=== PATIENT | female | born 1980 ===

== ENCOUNTER 2017-01-29 14:26 | Emergency (ER) | payer MEDICAID ==
[~2017-01-29] VITALS: Ht 160 cm; Wt 75.5 kg
[~2017-01-29 14:26] MED LIST: ALBU8.5H4 IH; CLIN-78 PO; Oxycodone/Acetaminophen PO; SENN-60 PO
[2017-01-29 14:32] VITALS: BP 117/76; PULSE 81; RESP 26; O2SAT 98
[2017-01-29] MEDS ORDERED: Albuterol-Ipratropium 3 mL Inhalation Solution NEB ONE (14:35)
--- NOTE | 2017-01-29 14:35 | ED.REPORT ---
HPI-Dyspnea / Wheezing Date of Service Jan 29, 2017 ED Provider: History of Present Illness: 36-year-old female here with breathing difficulties. History of asthma. Has been having shortness of breath. Wheezing and asthma-like symptoms for 1-2 weeks. Ran out of her albuterol yesterday. Is being open up at night. She has had a cold recently, but no fevers. Never been intubated Nursing Notes Stated Complaint: DIFFICULTY BREATHING Chief Complaint: Respiratory Complaints Nursing Notes Reviewed: Yes Allergies: Coded Allergies: codeine (Verified Allergy, Unknown, 03/26/15) Scheduled Albuterol HFA (Proair HFA) 8.5 Gm Hfa.aer.ad 2 PUFFS INHALATION Q4H Azithromycin (Zithromax) 250 Mg Tablet 250 MG PO DAILY Beclomethasone Dipropionate (Qvar) 8.7 Gm Aer.w.adap 1 PUFF INHALATION BID 2 puff bid, start after prednisone Clindamycin (Clindamycin) 300 Mg Capsule 300 MG PO QID Prednisone (PredniSONE) 20 Mg Tablet 20 MG PO BID Scheduled PRN ([Oxycodone/Acetaminophen]) 1 TAB TABLET 1 TAB PO Q4H PRN PRN For Pain Albuterol HFA (Albuterol HFA) 8.5 Gm Hfa.aer.ad 2 PUFF IH Q4 PRN PRN For Shortness of Breath Sennosides (Senokot) 8.6 Mg Tablet 17.2 MG PO BID PRN PRN For Constipation General Time Seen by MD: 14:34 Chief Complaint Shortness of breath, Wheezing Hx Obtained From: Patient Arrived By: Walk-in Sudden in Onset?: No Context of Onset: Asthma attack Symptom Duration: Since onset Location: : None Recent Healthcare: No recent doctor visit Similar Sx Previous: Yes Past Medical History Past Medical History asthma Chronic back pain Reports: Asthma Past Surgical History Reports: Tonsillectomy Family History non-contributory Smoking History Current Every Day Smoker Social History Alcohol Use: "Social" Drug Use: Cocaine, THC Ambulatory Status Independent Review of Systems Basic Review of Systems GI: No abdominal pain, No anorexia, No nausea, No vomiting Constitutional: Denies: Chills, Fatigue, Fever Respiratory: Reports: Dyspnea on exertion, Prod cough, clear, Shortness of breath, Wheezing Cardiovascular: Reports: Dyspnea on exertion, Denies: Chest pain Complete sys rev & neg: except as marked. Physical Exam Initial Vital Signs Vital Signs (First) Date Time Temp Pulse Resp B/P Pulse Ox O2 Delivery O2 Flow Rate FiO2 01/29/17 14:32 81 26 117/76 98 Room Air Initial VS: Reviewed, Vital signs normal Head / Eyes: Atraumatic, Normocephalic, PERRL ENT: Mucous membranes moist, Conjunctiva normal, No scleral icterus Abdomen / GI: Soft, Non-tender, No guarding, No rebound, No distention Skin: Warm, Dry, No cyanosis Neurologic: Alert, Oriented, Nonfocal Psychiatric: Mood/affect normal, Behavior normal, Normal thought content Respiratory / Chest: No rales, No rhonchi, No retractions, No stridor Wheezing / Retractions: Positive: Wheeze insp/exp diffuse, Wheezing expiratory , Wheezing inspiratory Interpretation & Diagnostics X-Ray Chest Interpretation Chest Xray Interpretation: [place] [address] Patient Name: ANANHT WANG MR#: [id number] [place] [facility] [place] Phys: Nahomy Valladares Date of Service: 01/29/17 1443 PROCEDURE: X-RAY CHEST, TWO VIEWS ([id number]) INDICATIONS: SHORTNESS OF BREATH TECHNIQUE: 2 views of the chest were acquired. COMPARISON: [facility], , CHEST 2VW, 10/30/2009, 14:38. FINDINGS: Surgical changes and devices: None. Lungs and pleura: No pleural effusions or pneumothorax. There are a few asymmetric patchy opacities in the left lung laterally. Mediastinum: Mediastinal contours are normal. Heart size is normal. Bones and chest wall: No suspicious bony abnormalities. Soft tissues appear unremarkable. IMPRESSION: 1. Mild asymmetric opacities in the left lung may reflect pneumonia. Recommend correlation clinically and short-term followup repeat study if indicated. Re-Eval/Medical Decision Med Decision/Clinical Course Area possible pneumonia on chest x-ray we will treat with Zithromax. Patient is resting comfortably with minimal wheezes throughout lungs. Discharge & Departure Shift Change Sign-Out Imaging Studies: Imaging discussed Procedures: Results discussed Impression: Primary Impression: Asthma with acute exacerbation Asthma severity: mild intermittent Qualified Code: J45.21 - Mild intermittent asthma with (acute) exacerbation Additional Impression: Pneumonia Pneumonia type: due to unspecified organism Laterality: left Lung location : lower lobe of lung Qualified Code: J18.1 - Lobar pneumonia, unspecified organism Disposition: Home Discharge Condition All VS Reviewed: Yes Condition: Stable Patient Instructions: Asthma (ED) Additional Instructions: Using prednisone for a total of 5 days. You were given her first dose today. Start 40 mg of prednisone tomorrow. You were also given your first dose of Zithromax here today, take your next dose tomorrow. Use your albuterol 1-2 puffs every 4-6 hours as needed. Start your Qvar after your course of prednisone is finished. Return here if worsening symptoms. Otherwise follow- up with your PCP for further care Referrals: [facility] Provider for [facility]: Dilshad Patel Linnea K ARNP Jan 29, 2017 14:34
[2017-01-29] MEDS ORDERED: Albuterol 0.5% (5mg/mL) 20 mL Inhalation Solution NEB ONE (14:55)
[2017-01-29 15:04] VITALS: PULSE 99; RESP 24; O2SAT 95
[2017-01-29] MEDS ORDERED: predniSONE 20 mg Tablet PO ONE (15:20)
--- NOTE | 2017-01-29 15:59 | DRSVH ---
PROCEDURE: X-RAY CHEST, TWO VIEWS ([id number]) INDICATIONS: SHORTNESS OF BREATH TECHNIQUE: 2 views of the chest were acquired. COMPARISON: [facility], , CHEST 2VW, 10/30/2009, 14:38. FINDINGS: Surgical changes and devices: None. Lungs and pleura: No pleural effusions or pneumothorax. There are a few asymmetric patchy opacities in the left lung laterally. Mediastinum: Mediastinal contours are normal. Heart size is normal. Bones and chest wall: No suspicious bony abnormalities. Soft tissues appear unremarkable. IMPRESSION: 1. Mild asymmetric opacities in the left lung may reflect pneumonia. Recommend correlation clinical ly and short-term followup repeat study if indicated. Dictated by: Gareth Howard M.D. on 01/29/2017 at 15:56 Approved by: Gareth Howard M.D. on 01/29/2017 at 15:57
[2017-01-29] MEDS ORDERED: Albuterol HFA 60 Puff 8 Gm Inhaler INHALATION PRN (16:10)
[2017-01-29] MEDS ORDERED: ALBU8.5H2 INHALATION (16:10)
[2017-01-29] MEDS ORDERED: ZIT250 PO (16:12)
[2017-01-29] MEDS ORDERED: PRE20 PO (16:13)
[2017-01-29] MEDS ORDERED: BECL8.7A6 INHALATION (16:14)
[2017-01-29] MEDS ORDERED: _Proair 200 Puff/8.5 GM Inhaler INHALATION PRN (16:20)
[2017-01-29 16:34] VITALS: BP 96/65; PULSE 92; RESP 20; O2SAT 95
== END 2017-01-29 16:36 | disposition home or self-care (01) ==
LOC: SED 14:26
DX: J45.21 Mild intermittent asthma with (acute) exacerbation (principal); J18.1 Lobar pneumonia, unspecified organism; F17.200 Nicotine dependence, unspecified, uncomplicated; Z88.5 Allergy status to narcotic agent
CPT/HCPCS: 71020; 94640; 94664; 99284; J7613; J7620